=== PATIENT | male | born 1940 | race Caucasian/White ===

== ENCOUNTER 2016-08-18 07:38 | Day surgery (SDC) | payer MEDICARE, OTHER ==
[2016-08-18] MEDS: TROPICAMIDE 1% OPHTH 2 ML DROPS OPTH ONE (08:10)
[2016-08-18] MEDS: CYCLOPENTOLATE 1% OPHTH DROPS 2 ML OPTH ONE (08:12)
[2016-08-18] MEDS: KETOROLAC 0.45% OPHTH DROPS OPTH ONE (08:14)
[2016-08-18] MEDS: LACTATED RINGERS 1,000 ML IV ONE (08:24)
[2016-08-18] MEDS: BRIMONIDINE 0.2% OPHTH DROPS 5 ML OPTH ONE (09:29)
[2016-08-18] MEDS: levoFLOXacin 0.5% OPHTH DROPS 5 ML OPTH ONE (09:29)
[2016-08-18] MEDS: TETRACAINE OPHTH DROPS 2 ML OPTH ONE (09:29)
[2016-08-18] MEDS: PROPARACAINE 0.5% OPHTH DROPS 15 ML OPTH ONE (09:29)
[2016-08-18] MEDS: EPINEPHrine 1 MG/ML AMP IO ONE (09:29)
[2016-08-18] MEDS: CHONDR SULF/HYALURONATE SYRINGE IO ONE (09:29)
[2016-08-18] MEDS: BSS/LIDOCAINE/EPINEPHRINE 1 ML SYRINGE IO ONE (09:29)
[2016-08-18] MEDS ORDERED: PROPOFOL 200 MG/20 ML VIAL IVP ONE (09:40)
[2016-08-18] MEDS ORDERED: MIDAZOLAM 2 MG/2 ML VIAL IVP ONE (09:40)
[2016-08-18] MEDS ORDERED: LIDOCAINE-MPF 2% 5 ML VIAL IM ONE (09:40)
[2016-08-18] MEDS: LACTATED RINGERS 500 ML IV ONE (09:46)
[2016-08-18 10:37] VITALS: BP 150/82
--- NOTE | 2016-08-18 13:38 | OPERATIVE REPORT ---
DATE OF SURGERY: 08/18/2016 00:00:00 PREOPERATIVE DIAGNOSIS: Visually significant cataract, right eye. POSTOPERATIVE DIAGNOSIS: Visually significant cataract, right eye. NAME OF PROCEDURE: Cataract extraction with intraocular lens implant, right eye. SURGEON: Dl Churchill MD ANESTHESIA: Topical with IV sedation. ESTIMATED BLOOD LOSS: None. COMPLICATIONS: None. LENS USED: SN6AT5, 16.5 diopter lens, serial #[id number]; axis of alignment was 180 degrees. OPERATIVE TECHNIQUE: This is a patient who suffers from a visually significant cataract of the right eye. Informed consent was reviewed in the preoperative area, and the operative site was marked. Preop erative toric marker was also used to do to demarcate the 0, 90, and 180-degree axes while the patien t was sitting up. Once the patient's eye was marked, the patient was taken back to the operating room in stable condition. A time-out was performed, and the right eye was prepped and draped in the usual sterile ophthalmic fashion. A paracentesis wound was made, and the anterior chamber was filled with preservative-free lidocaine f ollowed by viscoelastic. A 2.4 mm blade was used to make a corneal incision at the 9-o'clock position . A bent cystotome was used to start a capsulorrhexis, and Utrata forceps were used to create a isai nuous curvilinear capsulorrhexis. BSS on a blunt-tipped cannula was used to hydrodissect the nucleus from the capsular bag. Phacoemulsification was used to divide the nucleus into quadrants and each of the quadrants removed using phacoemulsification. Irrigation and aspiration was used to remove the res idual cortex. The capsular bag was polished with the silicone I/A tip. The capsular bag was filled wi th viscoelastic, and the intraoperative toric marker was used to demarcate the 180 degree axis. The S N6AT5, 16.5 diopter lens was injected in the capsular bag, and the toric marker was aligned with the markings. Irrigation and aspiration was used to remove the viscoelastic. The lens was double checked and remained in alignment with the correct axis. Wounds were hydrated and proved to be watertight. A drop of Vigamox and a drop of brimonidine were placed in the operative eye, a patch and shield were p laced over the eye, and the patient was taken to postoperative care in stable condition. JOB #: [id number] EXT JOB #:[id number]
== END 2016-08-18 07:39 | disposition home or self-care (01) ==
LOC: SDS 07:38
PROVIDERS: ATTEND Ophthalmology
PROC: 08RJ3JZ Replacement of Right Lens with Synthetic Substitute, Percutaneous Approach (ICD-10-PCS; principal; 2016-08-18 09:00)
DX: H26.8 Other specified cataract (principal); E11.9 Type 2 diabetes mellitus without complications; M19.042 Primary osteoarthritis, left hand; M19.041 Primary osteoarthritis, right hand

== ENCOUNTER 2016-09-01 06:56 | Day surgery (SDC) | payer MEDICARE, OTHER ==
[2016-09-01] MEDS ORDERED: LACTATED RINGERS 500 ML IV ONE (07:02)
[2016-09-01] MEDS ORDERED: LIDOCAINE-MPF 2% 5 ML VIAL IM ONE (08:12)
[2016-09-01] MEDS ORDERED: MIDAZOLAM 2 MG/2 ML VIAL IVP ONE (08:12)
[2016-09-01] MEDS ORDERED: PROPOFOL 200 MG/20 ML VIAL IVP ONE (08:12)
[2016-09-01] MEDS ORDERED: BRIMONIDINE 0.2% OPHTH DROPS 5 ML OPTH ONE (08:20)
[2016-09-01] MEDS ORDERED: PROPARACAINE 0.5% OPHTH DROPS 15 ML OPTH ONE (08:20)
[2016-09-01] MEDS ORDERED: EPINEPHrine 1 MG/ML AMP IO ONE (08:20)
[2016-09-01] MEDS ORDERED: BSS/LIDOCAINE/EPINEPHRINE 1 ML SYRINGE IO ONE (08:21)
[2016-09-01] MEDS ORDERED: levoFLOXacin 0.5% OPHTH DROPS 5 ML OPTH ONE (08:21)
[2016-09-01] MEDS ORDERED: CHONDR SULF/HYALURONATE SYRINGE IO ONE (08:21)
== END 2016-09-01 06:57 | disposition home or self-care (01) ==
PROC: 08RK3JZ Replacement of Left Lens with Synthetic Substitute, Percutaneous Approach (ICD-10-PCS; principal; 2016-09-01 08:15)
DX: E11.36 Type 2 diabetes mellitus with diabetic cataract (principal); H25.9 Unspecified age-related cataract; Z79.84 Long term (current) use of oral hypoglycemic drugs; Z87.891 Personal history of nicotine dependence
CPT/HCPCS: 66984; V2632; V2787

== ENCOUNTER 2022-11-06 20:05 | Outpatient (CLI) | payer MEDICARE, OTHER | END 2022-11-06 20:06 | disposition E | LOC: EMS 20:05 ==